=== PATIENT | male | born 1950 | race Hispanic/Latino ===

== ENCOUNTER → 2017-05-03 | Outpatient (CLI) | payer MEDICARE | END | disposition home or self-care (01) | LOC: RAH 13:48 | PROVIDERS: ATTEND Family Medicine | DX: Z01.818 Encounter for other preprocedural examination (principal); M47.895 Other spondylosis, thoracolumbar region | CPT/HCPCS: 71046 ==

== ENCOUNTER → 2017-05-18 | Outpatient (CLI) | payer MEDICARE | END | disposition home or self-care (01) | LOC: RAH 09:53 | PROVIDERS: ATTEND Family Medicine | DX: M47.896 Other spondylosis, lumbar region (principal) | CPT/HCPCS: 72100 ==

== ENCOUNTER → 2018-05-30 | Outpatient (CLI) | payer MEDICARE | END | disposition home or self-care (01) | LOC: RAH 10-27 09:08 | PROVIDERS: ATTEND Family Medicine | DX: M47.816 Spondylosis without myelopathy or radiculopathy, lumbar region (principal) | CPT/HCPCS: 72100 ==

== ENCOUNTER → 2019-02-28 | Outpatient (CLI) | payer MEDICARE | END | disposition home or self-care (01) | LOC: RAH 11:29 | PROVIDERS: ATTEND Family Medicine Adult Medicine | DX: M17.11 Unilateral primary osteoarthritis, right knee (principal) | CPT/HCPCS: 73560 ==

== ENCOUNTER 2021-06-11 05:59 | Observation (INO) | payer OTHER ==
[2021-06-09 09:44] LABS: BASOPHILS % (AUTO) 0.9 % (0.0-5.0); HEMATOCRIT 30.5 % (42-54); LYMPHOCYTES % (AUTO) 31.9 % (21.0-51.0); MEAN CORPUSCULAR HEMOGLOBIN 27.2 pg (27.0-33.0); MEAN CORPUSCULAR HGB CONC 31.5 g/dL (32.0-36.0); MEAN CORPUSCULAR VOLUME 86.4 fL (79-99); MONOCYTES % (AUTO) 8.5 % (3.0-13.0); NEUTROPHILS % (AUTO) 56.4 % (40.0-77.0); PLATELET COUNT (AUTO) 300 K/uL (130-400); RED BLOOD CELL COUNT(AUTO) 3.53 MIL/uL (4.50-6.20); RED CELL DISTRIBUTION WIDTH 16.2 % (11.0-15.5); WHITE BLOOD COUNT (AUTO) 6.9 K/uL (4.8-10.8)
[2021-06-09 09:46] LABS: APPEARANCE,URINE CLEAR (CLEAR); BILIRUBIN,URINE SMALL (NEGATIVE); COLOR,URINE YELLOW (YELLOW); GLUCOSE, URINE (UA) NEGATIVE (NEGATIVE); KETONES,URINE 5 mg/dL (NEGATIVE); LEUKOCYTE ESTERASE ,URINE NEGATIVE (NEGATIVE); NITRATE,URINE NEGATIVE (NEGATIVE); OCCULT BLOOD,URINE NEGATIVE (NEGATIVE); PH,URINE 5.5 (5.0-8.0); PROTEIN,URINE TRACE mg/dL (NEGATIVE)
[2021-06-09 09:53] LABS: BACTERIA,URINE Few /HPF (None Seen); RBC,URINE 0-1 /HPF (0-1); SQUAMOUS EPITHELIAL CELL,UR 0-2 /HPF (0-2); WBC,URINE 0-1 /HPF (0-1)
[2021-06-09 09:54] LABS: INR 1.15 (0.85-1.15); PROTHROMBIN TIME 12.4 SEC (9.6-11.6)
[2021-06-09 10:05] LABS: CREATININE 1.1 mg/dL (0.5-1.5); POTASSIUM 4.4 mmol/L (3.5-5.1)
[2021-06-10 10:44] VITALS: BP 103/58
[2021-06-11] VITALS (23 sets, daily range): BP systolic 118–143; BP diastolic 61–87
[~2021-06-11] VITALS: Ht 172.7 cm; Wt 59.0 kg
[~2021-06-11 05:59] MED LIST: ATOR10 PO; CALCIUM CITRATE PO; FERR-72 PO; HYDR-4064 PO; LEVO112C4 PO; MVIT PO; NAPR-1023 PO; PANT40TA54 PO
[2021-06-11] MEDS ORDERED: CEFAZOLIN SODIUM 1 GM VIAL ONE (07:38)
[2021-06-11] MEDS ORDERED: LACTATED RINGERS 1000ML 1,000 ML IV ONE (07:38)
[2021-06-11] MEDS ORDERED: CLINDAMYCIN IVPB 900MG/50ML 50 ML IV ONE (07:39)
[2021-06-11] MEDS ORDERED: ROPIVACAINE 0.5% 5MG/ML 30ML IJ ONE (08:05)
[2021-06-11] MEDS ORDERED: VANCOMYCIN 1G VIAL ONE (08:55)
[2021-06-11] MEDS ORDERED: TRANEXAMIC ACID 1000MG/10ML ONE ×2 (08:55→13:11)
[2021-06-11] MEDS ORDERED: LIDOCAINE PF 100MG/5ML (2%) SYRINGE 5ML ONE (09:01)
[2021-06-11] MEDS ORDERED: ROCURONIUM 10MG/1ML SYR 10 MG/ML ML ONE (09:02)
[2021-06-11] MEDS ORDERED: MIDAZOLAM HCL 1 MG/ML 2ML VIAL ONE (09:02)
[2021-06-11] MEDS ORDERED: PROPOFOL 10 MG/ML 20ML VIAL IV ONE (09:02)
[2021-06-11] MEDS ORDERED: VANCOMYCIN 1G/250ML KIT 250 ML IV ONE (09:08)
[2021-06-11] MEDS ORDERED: FENTANYL CITRATE PF 50 MCG/1 ML 2ML VIAL ONE (09:53)
[2021-06-11] MEDS ORDERED: ONDANSETRON 4MG INJ ONE (11:26)
[2021-06-11] MEDS ORDERED: NEOSTIGMINE 5MG/5ML SYR IV ONE (11:26)
[2021-06-11] MEDS ORDERED: GLYCOPYRROLATE 1 MG/5 ML SYRINGE ONE (11:26)
[2021-06-11] MEDS ORDERED: FERROUS FUMARATE 324 MG TABLET PO PRN (12:30)
[2021-06-11] MEDS ORDERED: OXYCODONE HCL 5 MG TAB PO PRN ×2 (12:30)
[2021-06-11] MEDS ORDERED: ONDANSETRON 4MG INJ IVP PRN (12:30)
[2021-06-11] MEDS ORDERED: TRAMADOL HCL 50 MG TABLET PO PRN (12:30)
[2021-06-11] MEDS ORDERED: KCL 20 MEQ ERTAB PO PRN (12:30)
[2021-06-11] MEDS ORDERED: POTASSIUM CHLORIDE 10% ELIXIR 20 MEQ/15 ML UDCUP PO PRN (12:30)
[2021-06-11] MEDS ORDERED: KETOROLAC 15MG/ML VIAL (15MG/ML) IV PRN (12:30)
[2021-06-11] MEDS ORDERED: TEMAZEPAM 15 MG CAPSULE PO PRN (12:30)
[2021-06-11] MEDS ORDERED: LIDOCAINE HCL-MPF 1% 2ML VIAL IV PRN (12:30)
[2021-06-11] MEDS ORDERED: CALCIUM CARB 500MG PO PRN (12:30)
[2021-06-11] MEDS ORDERED: POTASSIUM CHLORIDE 20MEQ/100ML 100 ML IV PRN (12:30)
[2021-06-11] MEDS ORDERED: DiphenhydrAMINE HCL 50 MG/ML VIAL IVP PRN (12:30)
[2021-06-11] MEDS ORDERED: KETOROLAC 15MG/ML VIAL (15MG/ML) ONE (12:42)
[2021-06-11] MEDS ORDERED: MEPERIDINE-PF 25 MG/ML SYG ONE ×2 (12:42→13:10)
[2021-06-11] MEDS: CLINDAMYCIN IVPB 900MG/50ML 50 ML IV SCH ×2 (17:30→20:35)
[2021-06-11] MEDS ORDERED: ASPIRIN 81MG CHEW TAB ONE (17:42)
[2021-06-11] MEDS ORDERED: CELECOXIB 200 MG CAP ONE (17:42)
[2021-06-11] MEDS: ACETAMINOPHEN 500 MG TABLET PO SCH ×2 (17:52→20:28)
[2021-06-11] MEDS: ASPIRIN 81 MG EC TAB PO SCH (20:29)
[2021-06-11] MEDS: 0.9%NACL 1000ML 1,000 ML IV SCH (20:34)
[2021-06-11] MEDS: PREGABALIN 25 MG CAP PO SCH (20:35)
[2021-06-11] MEDS: CELECOXIB 200 MG CAP PO SCH (20:37)
[2021-06-12] MEDS: CLINDAMYCIN IVPB 900MG/50ML 50 ML IV SCH ×2 (01:30→03:53)
[2021-06-12] MEDS ORDERED: CLINDAMYCIN IVPB 900MG/50ML 50 ML IV ONE (03:51)
[2021-06-12 03:54] VITALS: BP 130/70
[2021-06-12] MEDS: ACETAMINOPHEN 500 MG TABLET PO SCH ×3 (03:55→18:16)
[2021-06-12 05:29] LABS: HEMATOCRIT 23.5 % (42-54); MEAN CORPUSCULAR HEMOGLOBIN 27.2 pg (27.0-33.0); MEAN CORPUSCULAR HGB CONC 32.3 g/dL (32.0-36.0); MEAN CORPUSCULAR VOLUME 84.2 fL (79-99); RED BLOOD CELL COUNT(AUTO) 2.79 MIL/uL (4.50-6.20); RED CELL DISTRIBUTION WIDTH 16.2 % (11.0-15.5); WHITE BLOOD COUNT (AUTO) 6.1 K/uL (4.8-10.8)
[2021-06-12] MEDS: LEVOTHYROXINE 112 MCG TABLET PO SCH (05:33)
[2021-06-12 05:45] LABS: CREATININE 0.9 mg/dL (0.5-1.5); POTASSIUM 3.8 mmol/L (3.5-5.1)
[2021-06-12] MEDS: 0.9%NACL 1000ML 1,000 ML IV SCH (06:04)
[2021-06-12 08:04] VITALS: BP 128/65
[2021-06-12] MEDS: POLYETHYLENE GLYCOL 3350 17 GM POWD.PACK PO SCH (08:39)
[2021-06-12] MEDS: ASPIRIN 81 MG EC TAB PO SCH ×2 (08:39→19:58)
[2021-06-12] MEDS: CELECOXIB 200 MG CAP PO SCH ×2 (08:40→19:58)
[2021-06-12] MEDS: PREGABALIN 25 MG CAP PO SCH ×2 (08:40→19:58)
[2021-06-12] MEDS: PANTOPRAZOLE 40 MG TAB DR PO SCH (08:40)
[2021-06-12] MEDS: TAMSULOSIN HCL 0.4 MG CAP.ER.24H PO SCH (08:40)
[2021-06-12] MEDS: FERROUS SULFATE 325 MG TABLET.DR PO SCH ×2 (08:40→19:58)
[2021-06-12] MEDS ORDERED: CALCIUM CITRATE 1200 MG PO SCH (09:00)
[2021-06-12 11:25] VITALS: BP 126/58
[2021-06-12 16:26] VITALS: BP 123/61
[2021-06-12 19:08] VITALS: BP 129/63
[2021-06-12] MEDS ORDERED: ATORVASTATIN 10 MG TABLET PO SCH (21:00)
[2021-06-12 23:52] VITALS: BP 141/72
[2021-06-13 04:28] VITALS: BP 152/75
[2021-06-13] MEDS: ACETAMINOPHEN 500 MG TABLET PO SCH ×2 (05:04→14:19)
[2021-06-13] MEDS: LEVOTHYROXINE 112 MCG TABLET PO SCH (05:22)
[2021-06-13 05:34] LABS: HEMATOCRIT 26.8 % (42-54)
[2021-06-13 08:12] VITALS: BP 130/72
[2021-06-13] MEDS: CELECOXIB 200 MG CAP PO SCH (08:16)
[2021-06-13] MEDS: PREGABALIN 25 MG CAP PO SCH (08:16)
[2021-06-13] MEDS: ASPIRIN 81 MG EC TAB PO SCH (08:16)
[2021-06-13] MEDS: FERROUS SULFATE 325 MG TABLET.DR PO SCH (08:16)
[2021-06-13] MEDS: PANTOPRAZOLE 40 MG TAB DR PO SCH (08:16)
[2021-06-13] MEDS: POLYETHYLENE GLYCOL 3350 17 GM POWD.PACK PO SCH (08:16)
[2021-06-13] MEDS: TAMSULOSIN HCL 0.4 MG CAP.ER.24H PO SCH (08:19)
[2021-06-13 12:00] VITALS: BP 121/65
[2021-06-13] MEDS ORDERED: HYDR-4060 PO (14:17)
[2021-06-13] MEDS ORDERED: AEC81 PO (14:17)
[2021-06-13 16:00] VITALS: BP 131/66
[2021-06-14] MEDS ORDERED: BISACODYL 10 MG SUPP.RECT RC PRN (12:30)
== END 2021-06-13 18:15 ==
LOC: DAH 05:59 → DAHIP 06:00 → DAH 06:00 → 3AH 19:33
PROVIDERS: ADMIT Orthopaedic Surgery; ATTEND Orthopaedic Surgery
DX: M17.11 Unilateral primary osteoarthritis, right knee (principal); Z20.822 Contact with and (suspected) exposure to COVID-19; D62 Acute posthemorrhagic anemia; E03.9 Hypothyroidism, unspecified; E78.5 Hyperlipidemia, unspecified; K21.9 Gastro-esophageal reflux disease without esophagitis; Z96.652 Presence of left artificial knee joint; Z79.899 Other long term (current) drug therapy; Z88.0 Allergy status to penicillin
CPT/HCPCS: 27447; 36415 ×4; 36430; 64447; 76942; 80048 ×2; 81001; 85014; 85018; 85025; 85027; 85610; 86850; 86900; 86901; 86923; 87088; 87635; 87641; 88305; 88311; 96365; 96366 ×2; 96375; 97039 ×5; 97116 ×4; 97161; 97530 ×5; A4213; A4215; A4221; A4222; A4223 ×2; A4649 ×5; A4663; A5120; A9272; C1776; C9803; G0378 ×47; J1885 ×2; J2001; J2175; J2250; J2405; J2704; J2710; J2795; J3010; J3370 ×2; J3490 ×5; J7120 ×2; P9016; J0690

== ENCOUNTER 2024-03-11 11:31 | Emergency (ER) | payer OTHER, MEDICARE ==
[~2024-03-11] VITALS: Ht 172.7 cm; Wt 59.9 kg
[~2024-03-11 11:31] MED LIST changes: +AEC81 PO; +HYDR-4060 PO; -HYDR-4064 PO; -NAPR-1023 PO
--- NOTE | 2024-03-11 11:44 | ERN ---
ED Note History of Present Illness Stated Complaint: HEMATURIA Chief Complaint: Blood in Urine: Time Seen by MD: 11:36 Dictation: PATIENT IS A 73-YEAR-OLD MALE COMING IN TODAY WITH HISTORY OF A BLANCO CATHETER TO A LEG BAG THAT WAS PLACED LAST WEEK BY DR. CHILDRESS, UROLOGIST. STATES HE WOKE UP THIS MORNING AND HE HAD BLOOD IN THE BAG WITH HIS URINE. DENIES FEVER CHILLS NAUSEA VOMITING NO FLANK PAIN IN HIS NOT ON ANY BLOOD THINNERS. HISTORY OF URINARY RETENTION. Allergies: Coded Allergies: Penicillins (Unverified Allergy, Unknown, 06/10/21) Home Meds Active Scripts Hydrocodone/Acetaminophen (Hydrocodon-Acetaminophen 5-325) 1 Each Tablet, 1-2 EACH PO Q6HPRN PRN for ACUTE POST-OP PAIN (G89.18), #56 TAB 0 Refills Prov:AVNI JONES MD 06/13/21 Aspirin (ASPIRIN 81 MG ECTAB) 81 Mg Ectab, 81 MG PO BID for DVT PROPHYLAXIS, #40 TAB.EC Prov:AVNI JONES MD 06/13/21 Reported Medications [Calcium Citrate] No Conflict Check, 1200 MG PO DAILY 06/10/21 Multivitamins,Therapeutic (Multivitamin Tablet) 1 Tab Tab, 1 TAB PO DAILY, TAB 06/10/21 Pantoprazole Sodium (Pantoprazole Sodium) 40 Mg Tablet.dr, 40 MG PO DAILY, TAB 06/10/21 Atorvastatin Calcium (LIPITOR) 10 Mg Tab, 10 MG PO HS, TAB 06/10/21 Levothyroxine Sodium (Levothyroxine) 112 Mcg Capsule, 112 MCG PO ACBKFST, CAP 06/10/21 Ferrous Sulfate (Ferrous Sulfate) 325 Mg Tablet, 325 MG PO BID, TAB 06/10/21 Past Medical History Past Medical History: GERD, High Cholesterol Additional Past Medical Hx: URINARY RETENTION Surgical History: Other Surgical History Other: BILAT KNEE REPLACEMENT RN Note Reviewed/Agreed w/PFSH: Yes Review of System Dictation CONSTITUTIONAL: NEGATIVE EXCEPT FOR HPI HEAD/FACE: NEGATIVE EXCEPT FOR HPI EENT: NEGATIVE EXCEPT FOR HPI RESPIRATORY: NEGATIVE EXCEPT FOR HPI GASTROINTESTINAL/ABDOMINAL: NEGATIVE EXCEPT FOR HPI GENITOURINARY: NEGATIVE EXCEPT FOR HPI HEMATURIA TO LEG BAG MUSCULOSKELETAL: NEGATIVE EXCEPT FOR HPI INTEGUMENTARY: NEGATIVE EXCEPT FOR HPI NEUROLOGICAL/PSYCH: NEGATIVE EXCEPT FOR HPI HEMATOLOGIC/LYMPHATIC: NEGATIVE EXCEPT FOR HPI ALL SYSTEMS NEGATIVE, EXCEPT NOTED ABOVE. 13 POINT REVIEW OF SYSTEMS ASSESSED AND ALL NEGATIVE EXCEPT FOR ABOVE. Initial Vital Sign VS Vital Signs Date Time Temp Pulse Resp B/P (MAP) Pulse Ox O2 Delivery O2 Flow Rate FiO2 03/11/24 11:34 97.9 81 18 127/75 98 Room Air 0 03/11/24 14:21 21 Physical Exam Dictation VITAL SIGNS REVIEWED 0/10 PAIN GENERAL APPEARANCE: ALERT, ORIENTED X 3, NO ACUTE DISTRESS, WELL DEVELOPED, NOURISHED. HEAD AND FACE: NON-TRAUMATIC. EYES: PERRL, PINK CONJUNCTIVAS, EYELID NO TRAUMA, ANTERIOR CHAMBER WITH ARCUS SENILIS. EARS: PINNAS INTACT AND NO SIGNS OF TRAUMA OR ERYTHEMA EAR CANALS CLEAR AND NO DISCHARGE TM NO ERYTHEMA NOSE: NO DISCHARGE, NO BLEEDING. OROPHARYNX: MOUTH NORMAL, TONGUE PINK, PHARYNX CLEAR,NO ERYTHEMA, TONSILS NO EXUDATES, NO ABSCESSES NOTED, MUCOUS MEMBRANE MOIST NECK: SUPPLE, NON-TENDER, NO THYROMEGALY, NO MASSES, NO JVD, NO BRUITS BREAST:DEFERRED CHEST:NO TENDERNESS, NO CREPITUS, NO PARADOXICAL MOVEMENT, NO RETRACTIONS LUNGS:CLEAR, WELL-VENTILATED, SYMMETRIC, NO RALES, NO WHEEZING, NO RHONCHI, NO STRIDOR, GOOD BREATH SOUNDS BILATERALLY HEART: REGULAR RATE, REGULAR RHYTHM, NO MURMUR, NO GALLOPS VASCULAR: NO PERIPHERAL EDEMA, ABDOMEN: SOFT, POSITIVE BOWEL SOUNDS, NONDISTENDED, NO GUARDING, NONTENDER, NO REBOUND, NO MASSES NO HEPATOMEGALY, NO SPLENOMEGALY, NO MCDONOUGH'S SIGN, NO HERNIAS. RECTAL: DEFERRED GENITAL: BLANCO CATHETER IN PLACE TO LEG BAG, LEFT LEG. HEMATURIA URINE NOTED IN BAG. NEUROLOGICAL: NORMAL SPEECH, MOTOR FUNCTION INTACT, SENSORY FUNCTION INTACT MUSCULOSKELETAL: NECK NONTENDER, FULL RANGE OF MOTION, BACK NONTENDER, FULL RANGE OF MOTION, EXTREMITIES: NONTENDER, FULL RANGE OF MOTION SKIN: COLOR PINK, DRY, NO TURGOR, NO RASH, NO LACERATIONS, NO ABRASIONS, NO CONTUSIONS. LYMPHATIC: DEFERRED Results (Laboratory/Radiology) Laboratory/Radiology Laboratory Tests Test 03/11/24 11:59 03/11/24 14:46 White Blood Count 5.4 K/uL (4.8-10.8) Red Blood Count 2.53 MIL/uL (4.50-6.20) L Hemoglobin 7.8 g/dL (14.0-18.0) L Hematocrit 23.4 % (42-54) L Mean Corpuscular Volume 92.5 fL (79-99) Mean Corpuscular Hemoglobin 30.8 pg (27.0-33.0) Mean Corpuscular Hemoglobin Concent 33.3 g/dL (32.0-36.0) Red Cell Distribution Width 12.5 % (11.0-15.5) Platelet Count 300 K/uL (130-400) Mean Platelet Volume 8.7 fL (7.5-10.5) Immature Granulocyte % (Auto) 0.2 % (0-1) Neutrophils (%) (Auto) 57.3 % (40.0-77.0) Lymphocytes (%) (Auto) 30.8 % (21.0-51.0) Monocytes (%) (Auto) 7.7 % (3.0-13.0) Eosinophils (%) (Auto) 3.4 % (0.0-8.0) Basophils (%) (Auto) 0.6 % (0.0-5.0) Neutrophils # (Auto) 3.1 K/uL (1.8-7.7) Lymphocytes # (Auto) 1.7 K/uL (1.0-4.8) Monocytes # (Auto) 0.4 K/uL (0.1-1.0) Eosinophils # (Auto) 0.18 K/uL (0.00-0.70) Basophils # (Auto) 0.03 K/uL (0.00-0.20) Absolute Immature Granulocyte (auto 0.01 K/uL (0-1) Nucleated Red Blood Cells 0.0 % (0.0-0.19) Sodium Level 131 mmol/L (136-145) L Potassium Level 4.4 mmol/L (3.5-5.1) Chloride Level 99 mmol/L (101-111) L Carbon Dioxide Level 27 mmol/L (21-32) Blood Urea Nitrogen 18 mg/dL (7-18) Creatinine 1.6 mg/dL (0.5-1.3) H Glomerular Filtration Rate Calc 45 mL/min (>90) Random Glucose 109 mg/dL (70-105) H Total Calcium 8.5 mg/dL (8.5-10.1) Urine Color LIGHT-RED (YELLOW) Urine Appearance CLOUDY (CLEAR) H Urine pH 6.0 (5.0-8.0) Urine Specific Bartelso 1.005 (1.001-1.031) Urine Protein 100 mg/dL (NEGATIVE) H Urine Glucose (UA) NEGATIVE mg/dL (NEGATIVE) Urine Ketones NEGATIVE mg/dL (NEGATIVE) Urine Occult Blood LARGE (NEGATIVE) H Urine Nitrate NEGATIVE (NEGATIVE) Urine Bilirubin NEGATIVE mg/dL (NEGATIVE) Urine Urobilinogen 0.2 mg/dL (0.2-1.0) Urine Leukocyte Esterase 500 Zachary/uL (NEGATIVE) H Urine RBC TNTC /HPF (0-1) H Urine WBC 11-25 /HPF (0-1) H Urine Bacteria None /HPF (None Seen) Labs Reviewed?: Yes ED Course ED Course Orders Procedure Category Date Status Time Cbc With Differential LAB 03/11/24 Complete 11:42 Urinalysis Profile LAB 03/11/24 Complete 11:42 Basic Metabolic Panel LAB 03/11/24 Complete 11:42 Culture Urine REYNALDO 03/11/24 Logged 15:09 Levofloxacin 500mg PHA 03/11/24 Transmitted Tab (Levaquin 500mg T 15:30 Vital Signs Date Time Temp Pulse Resp B/P (MAP) Pulse Ox O2 Delivery O2 Flow Rate FiO2 03/11/24 14:21 98.8 72 20 129/62 96 Room Air* 0 21 03/11/24 11:34 97.9 81 18 127/75 98 Room Air 0 FIFTEEN 15, PATIENT WILL BE GIVEN LEVAQUIN 500 MG P.O. FOR UTI WITH HEMATURIA. DISCHARGED HOME INCREASE HIS WATER INTAKE AND FOLLOW UP WITH HIS UROLOGIST NEXT WEEK. Medical Decision Making MDM MEDICAL DISCHARGE MAKING BASED ON BLANCO CATHETER HEMATURIA BLANCO CATHETER IS FLUSHED AND PATENT. PATIENT HAS HEMATURIA URINE WITH ACUTE CYSTITIS GIVEN LEVAQUIN 500 MG P.O. AND WE WILL BE DISCHARGED HOME WITH FOR SEVEN DAYS' WORTH OF ANTIBIOTICS TOLD TO SEE HIS UROLOGIST NEXT WEEK. DX & DISP Disposition: Discharge Departure Impression: Primary Impression: Acute cystitis with hematuria Additional Impression: Blanco catheter in place Condition: Stable Scripts Levofloxacin (Levofloxacin) 500 Mg Tablet 1 TAB PO DAILY for 10 Days, #10 TAB 0 Refills Prov: BENNIE GARCIA PANTS MAKER 03/11/24 Additional Instructions: FOLLOW-UP WITH PRIMARY CARE PROVIDER IN 1 TO 2 DAYS. TAKE MEDICATIONS DIRECTED HERE IN THE EMERGENCY ROOM. OKAY TO CONTINUE HOME MEDICATIONS UNLESS OTHERWISE DISCUSSED DURING YOUR VISIT IN THE EMERGENCY ROOM TODAY. RETURN TO YOUR NEAREST EMERGENCY ROOM IF SYMPTOMS WORSEN OR IF THERE IS NO IMPROVEMENT. CALL 911 IF YOU NEED IMMEDIATE ASSISTANCE. TAKE TYLENOL OR MOTRIN [id number] NEEDED AND IF NO CONTRAINDICATIONS ARE PRESENT. INCREASE ORAL HYDRATION. A WOUND CULTURE OR URINE CULTURE WAS ORDERED HERE IN THE EMERGENCY ROOM DEPARTMENT PLEASE FOLLOW-UP WITH PRIMARY CARE PROVIDER AND ADVISE THEM TO GET REPEAT PORTS FROM OUR FACILITY. IF YOU HAD ANY OCTAVIA WRAP/SPLINTS THAT WERE APPLIED HERE, PLEASE DO NOT REMOVE THEM UNTIL YOU SEE YOUR PRIMARY CARE OR SPECIALTY. INCREASE YOUR WATER INTAKE. TAKE LEVAQUIN DIRECTED UNTIL GONE STARTING TOMORROW. FOLLOW UP WITH THE UROLOGIST NEXT WEEK. Referrals: OLGA SAMAYOA MD (PCP) Time of Disposition: 15:17 I have reviewed the case, and I agree with, Diagnosis and Plan BENNIE GARCIA NP Mar 11, 2024 11:44
[2024-03-11 12:05] LABS: BASOPHILS # (AUTO) 0.03 K/uL (0.00-0.20); BASOPHILS % (AUTO) 0.6 % (0.0-5.0); EOSINOPHILS # (AUTO) 0.18 K/uL (0.00-0.70); EOSINOPHILS % (AUTO) 3.4 % (0.0-8.0); HEMATOCRIT 23.4 % (42-54); IMMATURE GRANULOCYTE ABSOLUTE 0.01 K/uL (0-1); LYMPHOCYTES # (AUTO) 1.7 K/uL (1.0-4.8); LYMPHOCYTES % (AUTO) 30.8 % (21.0-51.0); MEAN CORPUSCULAR HEMOGLOBIN 30.8 pg (27.0-33.0); MEAN CORPUSCULAR HGB CONC 33.3 g/dL (32.0-36.0); MEAN CORPUSCULAR VOLUME 92.5 fL (79-99); MONOCYTES # (AUTO) 0.4 K/uL (0.1-1.0); MONOCYTES % (AUTO) 7.7 % (3.0-13.0); NEUTROPHILS # (AUTO) 3.1 K/uL (1.8-7.7); NEUTROPHILS % (AUTO) 57.3 % (40.0-77.0); PLATELET COUNT (AUTO) 300 K/uL (130-400); RED BLOOD CELL COUNT(AUTO) 2.53 MIL/uL (4.50-6.20); RED CELL DISTRIBUTION WIDTH 12.5 % (11.0-15.5); WHITE BLOOD COUNT (AUTO) 5.4 K/uL (4.8-10.8)
[2024-03-11 12:24] LABS: CREATININE 1.6 mg/dL (0.5-1.3); POTASSIUM 4.4 mmol/L (3.5-5.1)
[2024-03-11 15:08] LABS: ADD UA MICROSCOPIC YES; APPEARANCE,URINE CLOUDY (CLEAR); BILIRUBIN,URINE NEGATIVE (NEGATIVE); GLUCOSE, URINE (UA) NEGATIVE (NEGATIVE); KETONES,URINE NEGATIVE (NEGATIVE); LEUKOCYTE ESTERASE ,URINE 500 Leu/uL (NEGATIVE); NITRATE,URINE NEGATIVE (NEGATIVE); OCCULT BLOOD,URINE LARGE (NEGATIVE); PROTEIN,URINE 100 mg/dL (NEGATIVE); UROBILINOGEN,URINE 0.2 mg/dL (0.2-1.0)
[2024-03-11 15:11] LABS: RBC,URINE TNTC /HPF (0-1)
[2024-03-11 15:12] LABS: COLOR,URINE LIGHT-RED (YELLOW)
[2024-03-11] MEDS ORDERED: LEVO-70 PO (15:18)
[2024-03-11] MEDS: levoFLOXacin 500 MG TABLET PO SCH (15:23)
[2024-03-11 15:26] VITALS: BP 124/67; PULSE 70; RESP 18; TEMP 98.1; O2SAT 97
== END 2024-03-11 15:38 | disposition home or self-care (01) ==
LOC: EDH 11:31
DX: N30.01 Acute cystitis with hematuria (principal); E78.00 Pure hypercholesterolemia, unspecified; K21.9 Gastro-esophageal reflux disease without esophagitis; Z79.899 Other long term (current) drug therapy; Z88.0 Allergy status to penicillin; Z96.653 Presence of artificial knee joint, bilateral; Z98.890 Other specified postprocedural states
CPT/HCPCS: 36415; 80048; 81001; 85025; 87086; 99284

== ENCOUNTER 2024-03-17 12:59 | Emergency (ER) | payer OTHER, MEDICARE ==
[~2024-03-17] VITALS: Ht 172.7 cm; Wt 64.4 kg
[2024-03-17 13:00] VITALS: BP 145/45; PULSE 73; RESP 20; TEMP 98.8
--- NOTE | 2024-03-17 13:08 | ERN ---
General Chief Complaint: Urinary Catheter Problems Stated Complaint: BLANCO BAG LEAK Time Seen by MD: 13:03 Time Seen by Midlevel: 13:03 Source: patient History of Present Illness Initial Comments Patient is a 73-year-old male with a past medical history of urinary retention presenting for a Blanco bag evaluation. Patient states that earlier today he noticed his Blanco bag was leaking. Denies any other symptoms or concerns. Allergies: Coded Allergies: Penicillins (Unverified Allergy, Unknown, 06/10/21) Home Meds Active Scripts Hydrocodone/Acetaminophen (Hydrocodon-Acetaminophen 5-325) 1 Each Tablet, 1-2 EACH PO Q6HPRN PRN for ACUTE POST-OP PAIN (G89.18), #56 TAB 0 Refills Prov:AVNI JONES MD 06/13/21 Aspirin (ASPIRIN 81 MG ECTAB) 81 Mg Ectab, 81 MG PO BID for DVT PROPHYLAXIS, #40 TAB.EC Prov:AVNI JONES MD 06/13/21 Reported Medications [Calcium Citrate] No Conflict Check, 1200 MG PO DAILY 06/10/21 Multivitamins,Therapeutic (Multivitamin Tablet) 1 Tab Tab, 1 TAB PO DAILY, TAB 06/10/21 Pantoprazole Sodium (Pantoprazole Sodium) 40 Mg Tablet.dr, 40 MG PO DAILY, TAB 06/10/21 Atorvastatin Calcium (LIPITOR) 10 Mg Tab, 10 MG PO HS, TAB 06/10/21 Levothyroxine Sodium (Levothyroxine) 112 Mcg Capsule, 112 MCG PO ACBKFST, CAP 06/10/21 Ferrous Sulfate (Ferrous Sulfate) 325 Mg Tablet, 325 MG PO BID, TAB 06/10/21 Discontinued Scripts Levofloxacin (Levofloxacin) 500 Mg Tablet, 1 TAB PO DAILY for 10 Days, #10 TAB 0 Refills Prov:BENNIE GARCIA NP 03/11/24 Past Medical History Past Medical History: High Cholesterol, Hypertension Medical History Other: URINARY RETENTION Past Surgical History: Cholecystectomy, Other Surgical History Other: BILATERAL KNEE SX ROS Dictation CONSTITUTIONAL: Negative except for HPI HEAD/FACE: Negative except for HPI EENT: Negative except for HPI RESPIRATORY: Negative except for HPI GASTROINTESTINAL/ABDOMINAL: Negative except for HPI GENITOURINARY: Negative except for HPI MUSCULOSKELETAL: Negative except for HPI INTEGUMENTARY: Negative except for HPI NEUROLOGICAL/PSYCH: Negative except for HPI HEMATOLOGIC/LYMPHATIC: Negative except for HPI All Systems Negative, Except as noted above. 13 point review of systems assessed and all negative except for above. Physical Exam Physical Exam Dictation Vital Signs reviewed General Appearance: Alert, oriented x 3, no acute distress, well developed, nourished. Head and Face: non-traumatic. Eyes: PERRL, pink conjunctivas, eyelid no trauma, anterior chamber with arcus senilis. Ears: Pinnas intact and no signs of trauma or erythema ear canals clear and no discharge TM no erythema Nose: No discharge, no bleeding. Oropharynx: Mouth normal, tongue pink, pharynx clear,no erythema, tonsils no exudates, no abscesses noted, mucous membrane moist Neck: Supple, non-tender, no thyromegaly, no masses, no JVD, no bruits Breast:Deferred Chest:No tenderness, no crepitus, no paradoxical movement, no retractions Lungs:Clear, well-ventilated, symmetric, no rales, no wheezing, no rhonchi, no stridor, good breath sounds bilaterally Heart: Regular rate, regular rhythm, no murmur, no gallops Vascular: no peripheral edema, Abdomen: Soft, positive bowel sounds, nondistended, no guarding, nontender, no rebound, no masses no hepatomegaly, no splenomegaly, no Mccauley's sign, no hernias. Rectal: Deferred Genital: Deferred Neurological: Normal speech, motor function intact, sensory function intact Musculoskeletal: Neck nontender, full range of motion, back nontender, full range of motion, Extremities: nontender, full range of motion Skin: Color pink, dry, no turgor, no rash, no lacerations, no abrasions, no contusions. Lymphatic: Deferred MDM MDM: Patient is a 73-year-old male with a past medical history of urinary retention presenting for a Blanco bag evaluation. Patient states that earlier today he noticed his Blanco bag was leaking. Denies any other symptoms or concerns. On physical examination patient has a Blanco bag in place with no signs of infection. The Blanco bag appears to be torn. Blanco bag was replaced in the emergency department and patient was discharged home. Patient advised to follow up with PCP and urologist in 2-3 days for repeat evaluation. Return precautions discussed Differential diagnosis: Blanco bag evaluation, Blanco bag replacement There are no social concerns with this patient. Prescription drug management Prescriptions will include: None Medical management and examination interpretation discussions were had by me with other qualified healthcare professionals as indicated for the patient's care. ED Course Orders Procedure Category Date Status Time *Nursing CPOE 03/17/24 Transmitted Communication: 13:07 Vital Signs Date Time Temp Pulse Resp B/P (MAP) Pulse Ox O2 Delivery O2 Flow Rate FiO2 03/17/24 13:00 98.8 73 20 145/45 99 Room Air 0 DX & DISP Disposition: Discharge Departure Impression: Primary Impression: Encounter for evaluation of Blanco catheter Condition: Stable Additional Instructions: Your Blanco catheter bag was replaced. Follow up with your primary care doctor in 2-3 days for repeat evaluation. Return to the ER for any new or worsening symptoms Referrals: OLGA SAMAYOA MD (PCP) Time of Disposition: 13:08 I have reviewed the case, and I agree with, Diagnosis and Plan I performed the substantive portion of the visit. I have reviewed and personally made and approve the management plan that is documented in the note by myself or the GLORIA. I acknowledge for responsibility for the patient's management plan. TAMMIE PADRON Mar 17, 2024 13:08
--- NOTE | 2024-03-17 13:30 | NUR ---
BLANCO LEG COLLECTION BAG REPLACED.
== END 2024-03-17 13:34 | disposition home or self-care (01) ==
LOC: EDH 12:59
DX: T83.031A Leakage of indwelling urethral catheter, initial encounter (principal); E78.00 Pure hypercholesterolemia, unspecified; I10 Essential (primary) hypertension; Z79.899 Other long term (current) drug therapy; Z88.0 Allergy status to penicillin; Z90.49 Acquired absence of other specified parts of digestive tract; Y84.6 Urinary catheterization as the cause of abnormal reaction of the patient, or of later complication, without mention of misadventure at the time of the procedure
CPT/HCPCS: 99281

== ENCOUNTER → 2025-04-10 | Emergency (ER) | payer OTHER, MEDICAID ==
[~2025-04-10] VITALS: Ht 172.7 cm; Wt 59.0 kg
[~2025-04-10] MED LIST changes: -LEVO112C4 PO; +LEVO112C5 PO
[2025-04-10 16:21] VITALS: BP 145/69; PULSE 84; RESP 16; TEMP 98.2
== END ==
LOC: EDH 16:17
DX: R03.0 Elevated blood-pressure reading, without diagnosis of hypertension (principal); Z53.21 Procedure and treatment not carried out due to patient leaving prior to being seen by health care provider
CPT/HCPCS: 99281